=== PATIENT | female | born 1990 | race Caucasian/White ===

== ENCOUNTER 2017-03-01 14:40 | Emergency (ER) | payer OTHER ==
[~2017-03-01] VITALS: Ht 160 cm; Wt 109.7 kg
[~2017-03-01 14:40] MED LIST: KEFLEX500 MG PO; MOTRIN800 MG PO; NAPROSYN500 MG PO; NORCO 5/3251 TABLET PO; PERCOCET 5/31 TABLET PO; SPRINTEC1 EACH PO; TRAMADOL HCL50 MG PO; ZANTAC150 MG PO; ZOFRAN ODT4 MG PO
[2017-03-01] MEDS ORDERED: NAPROSYN500 MG PO (17:30)
[2017-03-01 18:07] VITALS: BP 111/70
== END 2017-03-01 18:07 | disposition home or self-care (01) ==
LOC: EME 14:40
PROC: 2W3RX1Z Immobilization of Left Lower Leg using Splint (ICD-10-PCS; principal; 2017-03-01)
DX: S93.602A Unspecified sprain of left foot, initial encounter (principal); S93.402A Sprain of unspecified ligament of left ankle, initial encounter; W10.9XXA Fall (on) (from) unspecified stairs and steps, initial encounter
CPT/HCPCS: 73630; 99281; 99284

== ENCOUNTER 2017-04-12 10:06 | Emergency (ER) | payer OTHER ==
[~2017-04-12] VITALS: Ht 160 cm; Wt 110.5 kg
[2017-04-12 11:02] LABS: HEMATOCRIT 45.1 % (36.0-46.0); HEMOGLOBIN 14.7 G/DL (11.9-15.5); MCH 27.8 PG (29.0-34.0); MCHC 32.6 G/DL (30.0-36.0); MCV 85.3 FL (83-99); PLATELET COUNT 232 K/uL (156-360); RBC DIS.WIDTH-CV 13.4 % (11.8-14.6); RBC DIS.WIDTH-SD 41.9 % (39-53); RED BLOOD COUNT 5.29 M/uL (3.80-5.20); WHITE BLOOD COUNT 8.1 K/uL (4.1-10.2)
[2017-04-12 11:13] LABS: CHLORIDE 106 mEq/L (99-109); POTASSIUM 4.4 mEq/L (3.7-5.4); SODIUM 141 mEq/L (136-147)
[2017-04-12 11:15] LABS: GLUCOSE 98 mg/dL (70-99)
[2017-04-12 11:16] LABS: TOTAL PROTEIN 7.2 g/dL (6.4-8.3)
[2017-04-12 11:17] LABS: TOTAL BILIRUBIN 0.3 mg/dL (0.0-1.0)
[2017-04-12 11:19] LABS: ALKALINE PHOSPHATASE 123 IU/L (3-129); CREATININE 0.7 mg/dL (0.6-1.3); GFR ESTIMATE (CALCULATED) > 59 mL/min/
[2017-04-12 11:20] LABS: UREA NITROGEN (BUN) 9 mg/dL (9-23)
[2017-04-12 11:21] LABS: AST (GOT) 17 IU/L (2-34)
[2017-04-12 11:22] LABS: ALT (GPT) 19 IU/L (3-49)
[2017-04-12 11:29] LABS: QUANTITATIVE HCG < 4.0 MIU/ML
[2017-04-12 12:17] LABS: APPEARANCE SL.HAZY ((CLEAR)); BILIRUBIN NEGATIVE; BLOOD NEGATIVE; COLOR YELLOW ((YELLOW)); GLUCOSE (STRIP) NEGATIVE; KETONES NEGATIVE; LEUKOCYTES LARGE; NITRITE NEGATIVE; PROTEIN (STRIP) NEGATIVE; SPECIFIC GRAVITY 1.026 (1.000-1.030); UROBILINOGEN 0.2 MG/DL (0.2-1.0)
[2017-04-12 12:24] LABS: BACTERIA NONE SEEN /HPF; EPITHELIAL CELLS 1+ /HPF; MUCUS TRACE /LPF; RED BLOOD CELLS 0-5 /HPF (0-5); UCUL ADDED? YES; WHITE BLOOD CELLS 15-20 /HPF (0-5)
[2017-04-12] MEDS ORDERED: PYRIDIUM100 MG PO (13:01)
[2017-04-12] MEDS ORDERED: BACTRIM,SEPT1 TABLET PO (13:01)
[2017-04-12] MEDS ORDERED: BENTYL10 MG PO (14:27)
[2017-04-12 14:36] VITALS: BP 124/56
== END 2017-04-12 14:43 | disposition home or self-care (01) ==
LOC: EME 10:06
DX: N39.0 Urinary tract infection, site not specified (principal); R10.84 Generalized abdominal pain; K21.9 Gastro-esophageal reflux disease without esophagitis
CPT/HCPCS: 74177; 80053; 81003; 84702; 85027; 87086; 99281; 99285; J1885; J7030